=== PATIENT | female | born 1990 | race African-American/Black ===

== ENCOUNTER 2021-01-10 07:20 | Outpatient (REF) | payer OTHER, SELFPAY ==
[2021-01-10 11:33] LABS: MANUAL DIFF FLAG NO
[2021-01-10 11:49] LABS: Eosinophils Absolute Auto 0.3 X10*3/uL (0.0-0.4); Eosinophils Percent Auto 6.2 % (0-4); Hemoglobin 11.7 g/dl (12.0-16.0); Imm Gran Abs Auto 0.01 X10*3/uL (0.00-0.03); Imm Gran Pct Auto 0.2 % (0.0-0.4); Lymphocytes Absolute Auto 1.9 X10*3/uL (1.2-4.9); Lymphocytes Percent Auto 45.1 % (20-40); Mean Corpuscular HGB Conc 32.5 g/dl (31.0-35.0); Mean Corpuscular Hemoglobin 30.4 pg (27.0-33.0); Mean Corpuscular Volume 93.5 fL (80-98); Mean Platelet Volume 10.3 fL (9.4-12.3); Monocytes Absolute Auto 0.4 X10*3/uL (0.1-1.2); Monocytes Percent Auto 9.6 % (2-11); Neutrophils Absolute Auto 1.6 X10*3/uL (2.0-8.3); Neutrophils Percent Auto 37.9 % (45-73); Platelet Count 297 X10*3/uL (160-400); Red Blood Count 3.85 X10*6/uL (4.20-5.50); Red Cell Distribution Width 11.8 % (11.0-16.0); White Blood Count 4.2 X10*3/uL (4.8-10.8)
[2021-01-10 12:04] LABS: Cholesterol 163 mg/dL; Glucose Fasting 95 mg/dL (60-99); HDL Cholesterol 47 mg/dL; Iron 37 mcg/dL (30-160); LDL Cholesterol Calculated 108 mg/dl; Percent Iron Saturation 12 % (15-50); Total Iron Binding Capacity 297 mcg/dL (228-428); Triglycerides 40 mg/dL; Unsaturated Iron Binding 260 ug/dL
[2021-01-10 12:19] LABS: Ferritin 41 ng/mL (10-122)
== END 2021-01-10 07:21 | disposition home or self-care (01) ==
LOC: HO.HMGCLDS 07:20
PROVIDERS: PCP Internal Medicine; Visit Provider Internal Medicine
DX: Z00.01 Encounter for general adult medical examination with abnormal findings (principal); D50.9 Iron deficiency anemia, unspecified
CPT/HCPCS: 36415; 80061; 82728; 82947; 83540; 85025

== ENCOUNTER 2021-03-23 09:06 | Outpatient (REF) | payer OTHER, SELFPAY ==
--- NOTE | ~2021-03-23 | US_ITS ---
EXAMINATION: US PELVIS AND TRANSVAGINAL CLINICAL INFORMATION: Excessive and frequent menses. Fibroids. COMPARISON: None TECHNIQUE: Ultrasound of the pelvis is performed using both transabdominal and transvaginal transducers along with Doppler. Transvaginal imaging is performed due to inadequate visualization transabdominally. FINDINGS: UTERUS: The uterus is retroverted and measures 7.2 x 3.4 x 4.5 cm. The double wall endometrial thickness is 14 mm. The uterus is smooth in contour and has normal myometrial echogenicity. No visible fibroid. ADNEXA: Both ovaries are visualized. There is normal color flow to the adnexa. There is no ovarian torsion. [id number] pelvic free fluid. Right ovary measures 3.5 x 2 x 2.6 cm. Probable right ovarian corpus luteum measuring 1.7 cm. Left ovary measures 3.1 x 1.9 x 2.1 cm. No left ovarian lesion. US/US pelvic and transvaginal IMPRESSION: 1. Sonographically unremarkable uterus and endometrium. No myometrial fibroid. 2. Probable right ovarian corpus luteum measuring 1.7 cm. 3. Nmji-je-igdtnrvx pelvic free fluid.
== END 2021-03-23 09:07 | disposition home or self-care (01) ==
LOC: HO.HMGCX 09:06
PROVIDERS: PCP Internal Medicine; Visit Provider Internal Medicine
DX: N92.0 Excessive and frequent menstruation with regular cycle (principal); D50.9 Iron deficiency anemia, unspecified
CPT/HCPCS: 76830; 76856

== ENCOUNTER 2022-12-16 10:10 | Outpatient (REF) | payer OTHER, SELFPAY ==
[2022-12-16 11:15] LABS: MANUAL DIFF FLAG NO
[2022-12-16 11:41] LABS: Basophils Absolute Auto 0.1 X10*3/uL (0.0-0.2); Basophils Percent Auto 0.9 % (0-2); Eosinophils Absolute Auto 0.5 X10*3/uL (0.0-0.4); Hematocrit 38.2 % (37.0-47.0); Hemoglobin 12.8 g/dl (12.0-16.0); Imm Gran Abs Auto 0.02 X10*3/uL (0.00-0.03); Imm Gran Pct Auto 0.3 % (0.0-0.4); Lymphocytes Absolute Auto 1.6 X10*3/uL (1.2-4.9); Lymphocytes Percent Auto 24.4 % (20-40); Mean Corpuscular HGB Conc 33.5 g/dl (31.0-35.0); Mean Corpuscular Hemoglobin 31.1 pg (27.0-33.0); Mean Corpuscular Volume 92.7 fL (80.0-98.0); Mean Platelet Volume 9.8 fL (9.4-12.3); Monocytes Absolute Auto 0.5 X10*3/uL (0.1-1.2); Monocytes Percent Auto 7.2 % (2-11); Neutrophils Percent Auto 60.2 % (45-73); Platelet Count 302 X10*3/uL (160-400); Red Blood Count 4.12 X10*6/uL (4.20-5.50); Red Cell Distribution Width 12.1 % (11.0-16.0); White Blood Count 6.7 X10*3/uL (4.8-10.8)
[2022-12-16 12:05] LABS: HBS Num1 272.35 mIU/mL (0-7.99); ~Hepatitis B Surface Antibody REACTIVE (Nonreactive)
[2022-12-16 12:47] LABS: Alanine Aminotransferase 11 U/L (0-31); Aspartate Amino Transferase 19 U/L (5-31); Cholesterol 165 mg/dL; Glucose Fasting 79 mg/dL (60-99); HDL Cholesterol 50 mg/dL; Iron 114 mcg/dL (30-160); LDL Cholesterol Calculated 106 mg/dl; Percent Iron Saturation 39 % (15-50); Total Iron Binding Capacity 296 mcg/dL (228-428); Triglycerides 49 mg/dL; Unsaturated Iron Binding 182 ug/dL
[2022-12-18 02:24] LABS: Mumps Virus IgG Antibody <9.00 AU/mL; Rubella IgG Antibody 2.84 Index
== END 2022-12-16 10:11 | disposition home or self-care (01) ==
LOC: HO.HMGCLDS 10:10
PROVIDERS: PCP Internal Medicine; Visit Provider Internal Medicine
DX: D50.9 Iron deficiency anemia, unspecified (principal); Z01.84 Encounter for antibody response examination
CPT/HCPCS: 36415; 80061; 82947; 83540; 84450; 84460; 85025; 86706; 86735; 86762; 86765; 86787

== ENCOUNTER 2023-01-10 11:59 | Outpatient (REF) | payer SELFPAY ==
[2023-01-13 12:43] LABS: TS Negative Control Passed; TS Panel A 0; TS Panel B 0; TS Positive Control Passed; TSpotTB Negative (Negative)
== END 2023-01-10 12:00 | disposition home or self-care (01) ==
LOC: HO.HMGCLDS 11:59
PROVIDERS: PCP Internal Medicine; Visit Provider Internal Medicine
DX: Z11.1 Encounter for screening for respiratory tuberculosis (principal)
CPT/HCPCS: 36415; 86481

== ENCOUNTER 2023-03-21 09:46 | Outpatient (AMB) | payer BC, SELFPAY ==
--- NOTE | 2023-03-21 10:06 | AM.OFFVISNUR ---
Intake Intake Visit Reasons: MMR #2 Intake Note: Pt arrived for MMR booster Allergies No Known Allergies Allergy (Verified 12/13/22 12:00) Immunizations M-M-R II (PF) Performing Provider: Trena [place] MD Administered by: Lulú Lepe RN on 03/21/23 10:07 Dose Route Admin Location Lot Number Expiration Date NDC [employer] 0.5 mL subcut Right Arm [id number] 05/17/23 0551-8116-31 [employer] D VIS Given Date VIS Provided VIS Publication Date 03/21/23 Single Vaccine 21 Eligibility Eligibility Date Funding Source Not [facility] Eligible 03/21/23 Private Administration Comments: Sterile diluent Lot #[id number] Exp 06/16/2024 Coding Diagnoses Assessment & Plan Assessment & Plan Orders: Orders MMR Immunization Today Z23 - Encounter for immunization
== END 2023-03-21 10:50 | disposition home or self-care (01) ==
LOC: HO.HMGC 09:46
PROVIDERS: PCP Internal Medicine; Visit Provider Internal Medicine
DX: Z23 Encounter for immunization (principal)
CPT/HCPCS: 90471; 90707

== ENCOUNTER 2023-12-16 10:25 | Outpatient (AMB) | payer BC, SELFPAY ==
[2023-12-16 10:26] VITALS: BP 106/66; PULSE 61; O2SAT 98; BMI 24.6
--- NOTE | 2023-12-16 10:26 | A.OFFPC_ITS ---
Vital Signs 12/16/23 10:26 Height 5 ft 1 in Weight 130 lb BMI 24.6 BP 106/66 Blood Pressure Location Lt brachial Position Sitting Pulse 61 Pulse Source Pulse Oximeter Pulse Oximetry (%) 98 Oxygen Delivery Method Room Air Intake Visit Reasons: Annual PE Intake Note: pt is here for annual exam,patient states no concerns. last pap was done 2020 Magnetic Resonance Imaging Coordinator Required: No Accompanied by: Self / Same As Patient Allergies No Known Allergies Allergy (Verified 12/17/23 01:28) Medication List - Last Reconciled 12/16/23 by Trena [place] MD ferrous fumarate (Ferrocite) 324 mg PO DAILY loratadine (Claritin) 10 mg PO DAILY multivitamin 1 tab PO DAILY Tobacco use date assessed: 12/16/23 Dental Screening Dental Screen Date: 12/16/23 Did you have a dental visit in the last 12 months?: Yes Did you have a dental problem in the last 6 months where you did not have access to dental care?: No Was dental information given to patient?: Patient has dentist HPI Annual PE HPI Details 33-year-old lady with history of iron de ficiency anemia now resolved, still taking iron supplements due to heavy menstrual bleeding., presents today for her physical exam. She is up-to-date with her cervical cancer screening and pelvic exam, last done in 2020 at [facility]. She has seasonal and environmental allergies currently taking loratadine which has been helping. Has been feeling well with no complaints at present time. [facility] Medical History (Updated 12/17/23 @ 01:32 by Trena [place] MD) History of iron deficiency anemia Menorrhagia Surgical History (Updated 12/16/23 @ 10:29 by Dennis Luz CMA) No pertinent past surgical history Family History Father Mental health disorder Social History Housing: House Patient Tobacco Use Status: Never used Tobacco e-Cigarette/Vaping Use: Never Used service: No Current occupational status: employed Cognitive needs: No Hearing needs: No Vision needs: Yes Female Reproductive History Menstrual Duration of menses: 8-10 days Date of last menstrual period: 11/24/23 control method: none Questionnaire PHQ-9 Over the last 2 weeks, how often have you been bothered by any of the following problems? 1. Little interest or pleasure in doing things: not at all 2. Feeling down, depressed, or hopeless: not at all 3. Trouble falling or staying asleep, or sleeping too much: several days 4. Feeling tired or having little energy: several days 5. Poor appetite or overeating: not at all 6. Feeling bad about yourself - or that you are a failure or have let yourself or your family down: not at all 7. Trouble concentrating on things, such as reading the newspaper or watching television: not at all 8. Moving or speaking so slowly that other people could have noticed. Or the opposite - being so fidgety or restless that you have been moving around a lot more than usual: not at all 9. Thoughts that you would be better off or of hurting yourself in some way: not at all Total score: 2 Depression Screening Interpretation: Negative Depression Screening Done: Yes [id number] - PHQ-9 Billing: Yes Source: Developed by Drs. Vikas Almendarez, America Steiner, Tip Medeiros and colleagues, with an educational radha from [employer]. Thrive Questionnaire Date Thrive assessed: 12/16/23 I am a: Patient What is your living situation today?: I have a steady place to live Within the past 12 months, did the food you bought not last and you didn't have the money to get more?: Never true Within the past 12 months, did you worry whether your food would run out before you got money to buy more?: Never true Do you have trouble paying for medicines?: No Do you have trouble getting transportation to medical appointments?: No Do you have trouble paying your heating and electricity bill?: No Do you have trouble taking care of your child, family member or friend?: No Do you have trouble with day-to-day activities such as bathing, preparing meals, shopping, managing finances, etc.?: No Are you currently unemployed and looking for a job?: No Are you interested in more education?: No Please select the resources that you would like help with: None Currently or been in a relationship where the following occur: no concerns reported THRIVE Score: 0 AUDIT C Alcohol Use Questionnaire (AUDIT-C) 1. How often do you have a drink containing alcohol?: Never 3. How often do you have six or more drinks on one occasion?: Never Total Score: 0 JAMI-7 AMB Questionnaire JAMI-7 Date JAMI - 7 assessed: 12/16/23 Feeling nervous, anxious, or on edge: 1 = Several days Not being able to stop or control worryin = Not at all Worrying too much about different things: 1 = Several days Trouble relaxin = Several days Being so restless that it is hard to sit still: 0 = Not at all Becoming easily annoyed or irritable: 1 = Several days Feeling afraid as if something awful might happen: 0 = Not at all Total JAMI-7 score (0-4 normal; 5-9 mild; 10-14 moderate; 15-21 severe): 4 Source: Developed by Drs. Vikas Almendarez, America Steiner, Tip Medeiros and colleagues, with an educational radha from [employer]. JAMI-7 Assessment Billing JAMI-7 Assessment Tool: JAMI-7 Assessment 16120 Review of Systems Const Denies body aches, Denies fever(s), Denies headache(s) and Denies weakness Eyes Details: sees [facility] Denies itchy eyes and Reports requires corrective lenses ENT Details: gets dental cleaning q 6 months Denies dizziness, Denies headache(s), Denies nasal congestion and Denies nasal discharge Card Denies chest pain, Denies lightheadedness, Denies palpitations and Denies dyspnea Resp Denies chest congestion, Denies cough, Denies dyspnea and Denies wheezing GI Denies abdominal pain, Denies hematochezia, Denies change in bowel habits and Denies heartburn Reports menorrhagia Musc Reports no additional complaints Skin/Breast Denies lesions and Denies rash Neuro Denies dizziness, Denies headache(s) and Denies weakness Psych Reports no additional complaints Endo Denies polydipsia, Denies polyuria and Denies palpitations Diomedes/Lymph Denies easy bruising Aller/Immun Denies itchy eyes, Denies seasonal rhinorrhea and Denies wheezing Physical exam (Primary Care) Vital Signs: Last Vital Signs Pulse 61 12/16/23 10:26 BP 106/66 12/16/23 10:26 Pulse Ox 98 12/16/23 10:26 Oxygen Delivery Method Room Air 12/16/23 10:26 BMI result Body Mass Index 24.6 Tobacco/Smoking Status: Tobacco use Status Tobacco use date assessed 12/16/23 12/16/23 10:31 Patient Tobacco Use Status Never used Tobacco 12/16/23 10:31 e-Cigarette/Vaping Use Never Used 12/16/23 10:31 PHQ-9: PHQ-9 Score PHQ-9: Total score 2 12/16/23 10:50 Depression Screening Interpretation: Negative Thrive Assessment: Date of Thrive Assessment Date Thrive assessed 12/16/23 12/16/23 10:34 Currently or been in a relationship where the following occur: no concerns reported Const General: cooperative, comfortable and no acute distress Orientation/consciousness: patient oriented x3 Limitations: no limitations HENMT Ears: hearing grossly normal bilaterally, external ears normal, TM's normal bilaterally and EAC's normal General nose exam: Normal external nose present, Normal nasal mucous membranes and turbinates present and No nasal discharge present Mouth: Normal oral and palatal mucosa present, oropharynx normal and moist mucous membranes Throat: Yes posterior oropharynx normal Eyes General: appearance normal, both eyes and all related structures Conjunctivae: conjunctivae normal Pupils: Equal, round and reactive pupils present EOM: EOMs intact bilaterally Neck Neck: Yes full ROM, Yes no lymphadenopathy and Yes supple Chest Breast/axilla inspection: normal inspection of the breasts Breast/axilla palpation: normal palpation of the breasts Resp Effort & Inspection: normal respiratory effort and able to speak in complete sentences Auscultation: clear to auscultation bilaterally Cardio Rate: regular rate Rhythm: regular rhythm Heart sounds: S1 normal heart sound present and S2 normal heart sound present GI Inspection: Yes normal to inspection Palpation (GI): Soft to palpation, nontender and no masses Auscultation: normal bowel sounds General: Yes deferred (Up-to-date with her OBGYN exam) Back/Spine/Pelvis Cervical Spine: cervical ROM normal Thoracic/Lumbar Spine: thoracic and lumbar spine normal to inspection Skin General skin exam: no rashes or lesions noted Neuro General: patient oriented x3, gait normal, tone normal, moves all extremities, Normal light touch and pain sensation and no focal motor deficits Cranial nerves: Yes Equal, round and reactive pupils present Cognition (Neuro): normal cognition Gait exam (Neuro): Normal gait present Motor exam (neuro): 5/5 motor strength present throughout Extrem General: Yes normal to inspection, Yes full ROM, Yes no joint enlargement, Yes no pedal edema, Yes no calf tenderness and Yes normal gait Psych Appearance: grossly normal Mental Status: mental status grossly normal Speech and movement: Normal speech and movement present Affect: normal affect Attitude: cooperative Thought process: Normal thought process present Assessment and Plan Assessment & Plan (1) Annual visit for general adult medical examination with abnormal findings: Code(s): Z00. - Encounter for general adult medical examination with abnormal findings Plan: Will check appropriate labs. Continue with regular dental visit every 6 months and regular eye exams, at least every 2 years. Take adequate calcium in diet and vitamin-D 3 at 2000 IU per cap once a day, in addition to weight-bearing exercises to help maintain good muscle tone and weight control. Instructed to do self-breast exam, and recommended to get yearly mammogram, starting at age 40. Goes to [facility] for her routine Pap and pelvic exam, currently up-to-date. Up-to-date with her vaccines (2) History of iron deficiency anemia: Code(s): Z86.2 - Personal history of diseases of the blood and blood-forming organs and certain disorders involving the immune mechanism Plan: Repeat another CBC and iron profile, in the meantime continue with ferrous sulfate supplements (3) Menorrhagia: Comment: last 8-10 days Code(s): N92.0 - Excessive and frequent menstruation with regular cycle Qualifiers: Menorrhagia type: with regular cycle Qualified Code(s): N92.0 - Excessive and frequent menstruation with regular cycle Plan: Will check CBC and iron profile, currently being [facility] Orders: Orders Complete Blood Count Auto Diff 12/16/23 Z. - Encounter for general adult medical examination with abnormal findings IRON PROFILE 12/16/23 Z. - Encounter for general adult medical examination with abnormal findings Lipid Panel 12/16/23 Z. - Encounter for general adult medical examination with abnormal findings Vitamin D 25-OH Total 12/16/23 Z. - Encounter for general adult medical examination with abnormal findings Glucose Fasting 12/16/23 Z. - Encounter for general adult medical examination with abnormal findings Coding Level of Care Code Est Pt Prev Care [id number]([id number]) Diagnoses Annual visit for general adult medical examination with abnormal findings Z00.01 History of iron deficiency anemia Z86.2 Menorrhagia with regular cycle N92.0 Menorrhagia type: with regular cycle Additional Codes JAMI-7 Assessment Billing - JAMI-7 Assessment Tool: JAMI-7 Assessment 26897 ([id number])
== END 2023-12-16 10:48 | disposition home or self-care (01) ==
LOC: HO.HMGC 10:25
PROVIDERS: PCP Internal Medicine; Visit Provider Internal Medicine
DX: Z00.00 Encounter for general adult medical examination without abnormal findings (principal); Z86.2 Personal history of diseases of the blood and blood-forming organs and certain disorders involving the immune mechanism; N92.0 Excessive and frequent menstruation with regular cycle
CPT/HCPCS: 99395

== ENCOUNTER 2024-12-21 09:04 | Outpatient (REF) | payer BC, SELFPAY ==
--- OUTSIDE RECORDS SUMMARY | 2024-12-21 09:31 | XMS_ITS | Encounter Summary ---
Author Organization [facility] Address [address] [place] [phone] Phone Care Team Providers Care Gear Machinist Name Role Phone Patricia Yip MD Primary Care Provider Encounter Details Date Type Department Care Team (Late st Contact Info) Description 10/19/2012 [place]ation [facility] [place] [address] [place] [address] Family Medicine, Physician [address] [place], [place] [phone] Social History Tobacco Use Types Packs/Day Years Used Date Smoking Tobacco: Never Assessed Comments Unknown Sex and Gender Information Value Date Recorded Sex Assigned at Not on file Legal Sex Female 4:45 PM EDT Gender Identity Not on file Sexual Orientation Not on file documented as of this encounter Plan of Treatment Not on file documented as of this encounter Visit Diagnoses Not on filedocumented in this encounter Care Teams Gear Machinist Relationship Specialty Start Date End Date Patricia Yip MD [address] [place] [address] PCP - General 03/21/17 03/11/23 documented as of this encounter
--- OUTSIDE RECORDS SUMMARY | 2024-12-21 09:31 | XMS_ITS | Encounter Summary ---
Author Organization [facility] Address [address] [place] [address] Phone Care Team Providers Care Embossing Calender Operator Name Role Phone Patricia Yip MD Primary Care Provider Encounter Details Date Type Department Care Team (Late st Contact Info) Description 04/01/2011 Documentation [facility] [place] [address] [place] [address] Family Medicine, Physician [address] [place], [place] [phone] Social History Tobacco Use Types Packs/Day Years [...] on filedocumented in this encounter Care Teams Embossing Calender Operator Relationship Specialty Start Date End Date Patricia Yip MD [address] [place] [address] PCP - General 03/21/17 03/11/23 documented as of this encounter
--- OUTSIDE RECORDS SUMMARY | 2024-12-21 09:31 | XMS_ITS | Encounter Summary ---
Author Organization [facility] Address [address] [place] [phone] Phone Care Team Providers Care Computer Education Teacher Name Role Phone Patricia Yip MD Primary Care Provider Encounter Details Date Type Department Care Team (Late st Contact Info) Description 03/27/2017 Conversion Encounter [facility] [address] [place] [address] Social History Tobacco Use Types Packs/Day Years Used Date Smoking Tobacco: Never Comments:Never smoker Comments Unknown Sex and Gender Information Value Date Recorded Sex Assigned at Not on file Legal Sex Female 4:45 PM EDT Gender Identity Not on file Sexual Orientation Not on file documented as of this encounter Plan of Treatment Not on file documented as of this encounter Visit Diagnoses Not on filedocumented in this encounter Care Teams Computer Education Teacher Relationship Specialty Start Date End Date Patricia Yip MD [address] [place] [address] PCP - General 03/21/17 03/11/23 documented as of this encounter
--- OUTSIDE RECORDS SUMMARY | 2024-12-21 09:31 | XMS_ITS | Encounter Summary ---
Author Organization [facility] Address [address] [place] [address] Phone Care Team Providers Care Marketing Production Coordinator Name Role Phone Patricia Yip MD Primary Care Provider [phone] Encounter Details Date Type Department Care Team (Late st Contact Info) Description 07/29/2012 Documentation [facility] [place] [address] [place] [address] Family Medicine, Physician [address] [place], [place] [phone] Social History Tobacco Use Types Packs/Day Years [...] on filedocumented in this encounter Care Teams Marketing Production Coordinator Relationship Specialty Start Date End Date Patricia Yip MD [address] [place] [address] PCP - General 03/21/17 03/11/23 documented as of this encounter
--- OUTSIDE RECORDS SUMMARY | 2024-12-21 09:31 | XMS_ITS | Encounter Summary ---
Author Organization [facility] Address [address] [place] [phone] Phone Care Team Providers Care Jewel Inserter Name Role Phone Patricia Yip MD Primary Care Provider [phone] Encounter Details Date Type Department Care Team (Late st Contact Info) Description 07/29/2012 Documentation [facility] [place] [address] [place] [address] Family Medicine, Physician [address] [place], [place] [phone] Social History Tobacco Use Types Packs/Day Years [...] on filedocumented in this encounter Care Teams Jewel Inserter Relationship Specialty Start Date End Date Patricia Yip MD [address] [place] [address] PCP - General 03/21/17 03/11/23 documented as of this encounter
--- OUTSIDE RECORDS SUMMARY | 2024-12-21 09:31 | XMS_ITS | Encounter Summary ---
Author Organization [facility] Address [address] [place] [phone] Phone Care Team Providers Care Paediatric Physiotherapist Name Role Phone Patricia Yip MD Primary Care Provider Encounter Details Date Type Department Care Team (Late st Contact Info) Description 11/26/2012 Documentation [facility] [place] [address] [place] [address] Family Medicine, Physician [address] [place], [place] [phone] Social History Tobacco Use Types Packs/Day Years [...] on filedocumented in this encounter Care Teams Paediatric Physiotherapist Relationship Specialty Start Date End Date Patricia Yip MD [address] [place] [address] PCP - General 03/21/17 03/11/23 documented as of this encounter
--- OUTSIDE RECORDS SUMMARY | 2024-12-21 09:31 | XMS_ITS | Encounter Summary ---
Author Organization [facility] Address [address] [place] [address] Phone Care Team Providers Care Library Manager Name Role Phone Patricia Yip MD Primary Care Provider Encounter Details Date Type Department Care Team (Late st Contact Info) Description 04/01/2011 Documentation [facility] [place] Family Medicine [address] [place] [address] Family Medicine, Physician [address] [place], [place] [phone] Social History Tobacco Use Types Packs/Day Years [...] on filedocumented in this encounter Care Teams Library Manager Relationship Specialty Start Date End Date Patricia Yip MD [address] [place] [address] PCP - General 03/21/17 03/11/23 documented as of this encounter
--- OUTSIDE RECORDS SUMMARY | 2024-12-21 09:31 | XMS_ITS | Encounter Summary ---
Author Organization [facility] Address [address] [place] [address] Phone Care Team Providers Care Tape Librarian Name Role Phone Patricia Yip MD Primary Care Provider Encounter Details Date Type Department Care Team (Late st Contact Info) Description 10/19/2012 Documentation [facility] [place] [address] [place] [address] Family Medicine, Physician [address] [place], [place] [phone] Social History Tobacco Use Types Packs/Day Years [...] on filedocumented in this encounter Care Teams Tape Librarian Relationship Specialty Start Date End Date Patricia Yip MD [address] [place] [address] PCP - General 03/21/17 03/11/23 documented as of this encounter
--- OUTSIDE RECORDS SUMMARY | 2024-12-21 09:31 | XMS_ITS | Clinical Summary ---
Author Organization [facility] Address [address] [place] [phone] Phone Care Team Providers Care Piped Buttonhole Machine Operator Name Role Phone Unavailable Primary Care Provider Unavailabl e Immunizations Immunization Administration Dates Next Due DTP 02/07/1998, 5,06/10/1993, 993,1992 HPV, Quadrivalent 03/29/2011,02/20/2010,11/09/19 09 Hep A, ped/adol 03/29/2011 Hep B, ped/adol 04/01/2011, 3,1992, 993 Hib (PRP-T) 06/04/1994, 3,04/10/1993, 993 Influenza Split 03/29/2011 Influenza, injectable, trivalent 07/17/2007 MMR 02/07/1998,06/04/1994 Meningococcal Conj (Menactra) MCV4P 11/08/2008 OPV 02/07/1998, 5,06/04/1994, 993,1992 Tdap 05/27/2006 Family History Relation Name Status Comments Mother Alive Mother: Asthma Other 1 Alive grandparent: El evated cholesterol Other 2 Family history of Cancer, lung, Family history of Depression, Family history of Asthma Sister Alive Sister: Asthma Social History Tobacco Use Types Packs/Day Years Used Date Smoking Tobacco: Never Comments:Never smoker Comments Unknown Sex and Gender Information Value Date Recorded Sex Assigned at Not on file Legal Sex Female 4:45 PM EDT Gender Identity Not on file Sexual Orientation Not on file Last Filed Vital Signs Vital Sign Reading Time Taken Comments Blood Pressure 106/68 11/25/2012 12:00 AM EDT Pulse - - Temperature 36.8 ??C (98.3 ??F) 10/18/2012 12:[address] Respiratory Rate - - Oxygen Saturation - - Inhaled Oxygen Concentration - - Weight 51.5 kg (113 lb 8 oz) 11/25/2012 12:00 AM EDT Height 157 cm (5' 1.8 ) 11/25/2012 12:00 AM EDT Body Mass Index 20.89 11/25/2012 12:00 AM EDT Plan of Treatment Health Maintenance Due Date Last Done Comments Varicella Vaccines (1 of 2 - 13+ 2-dose series) 2005 Hepatitis A Vaccines (2 of 2 - 2-dose series) 09/29/2011 03/29/2011 DTaP,Tdap,and Td Vaccines (7 - Td or Tdap) 05/27/2016 05/27/2006, 02/07/1998, 12/08/1994, Additional history exists Influenza Vaccines (#1) 2024 03/29/2011, 07/17 COVID-19 Vaccine ( season) 2024 HIB Vaccines Completed 06/04/1994, 05/13, 04/10/1993, Additional history exists IPV Vaccines Completed 02/07/1998, 04/08/1994, 06/04/1994, Additional history exists MMR Vaccines Completed 02/07/1998, 06/04/1994 Meningococcal Vaccine Completed 11/08/2008 HPV Vaccines Completed 03/29/2011, 02/08, 11/08/2008 Hepatitis B Vaccines Completed 04/01/2011, 04/12/1993, 1992, Additional history exists Men B Vaccine Aged Out No longer elig ible based on patient's age to complete this topic Pneumococcal Vaccine Aged Out No long er eligible based on patient's age to complete this topic
--- OUTSIDE RECORDS SUMMARY | 2024-12-21 09:31 | XMS_ITS | Encounter Summary ---
Author Organization [facility] Address [address] [place] [address] Phone Care Team Providers Care Table And Desk Finisher Name Role Phone Patricia Yip MD Primary Care Provider Encounter Details Date Type Department Care Team (Late st Contact Info) Description 04/01/2011 Documentation [facility] [place] Family Medicine [address] [place] [address] Family Medicine, Physician [address] [place], [place] [phone] Social History Tobacco Use Types Packs/Day Years [...] on filedocumented in this encounter Care Teams Table And Desk Finisher Relationship Specialty Start Date End Date Patricia Yip MD [address] [place] [address] PCP - General 03/21/17 03/11/23 documented as of this encounter
--- OUTSIDE RECORDS SUMMARY | 2024-12-21 09:31 | XMS_ITS | Encounter Summary ---
Author Organization [facility] Address [address] [place] [address] Phone Care Team Providers Care Fire Control System Installer Name Role Phone Patricia Yip MD Primary Care Provider [phone] Encounter Details Date Type Department Care Team (Late st Contact Info) Description 07/24/2012 Documentation [facility] [place] Family Medicine [address] [place] [address] Family Medicine, Physician [address] [place], [place] [phone] Social History Tobacco Use Types Packs/Day Years [...] on filedocumented in this encounter Care Teams Fire Control System Installer Relationship Specialty Start Date End Date Patricia Yip MD [address] [place] [address] PCP - General 03/21/17 03/11/23 documented as of this encounter
--- OUTSIDE RECORDS SUMMARY | 2024-12-21 09:31 | XMS_ITS | Encounter Summary ---
Author Organization [facility] Address [address] [place] [address] Phone Care Team Providers Care Satellite Tv Technician Name Role Phone Patricia Yip MD Primary Care Provider Encounter Details Date Type Department Care Team (Late st Contact Info) Description 08/07/2012 Documentation [facility] Family Medicine [address] [place] [address] Family Medicine, Physician [address] [place], [place] [phone] Social History Tobacco Use Types Packs/Day Years [...] on filedocumented in this encounter Care Teams Satellite Tv Technician Relationship Specialty Start Date End Date Patricia Yip MD [address] [place] [address] PCP - General 03/21/17 03/11/23 documented as of this encounter
--- OUTSIDE RECORDS SUMMARY | 2024-12-21 09:31 | XMS_ITS | Encounter Summary ---
Author Organization [facility] Address [address] [place] [address] Phone Care Team Providers Care Pump Runner Name Role Phone Patricia Yip MD Primary Care Provider Encounter Details Date Type Department Care Team (Late st Contact Info) Description 04/01/2011 Documentation [facility] [place] Family Medicine [address] [place] [address] Family Medicine, Physician [address] [place], [place] [phone] Social History Tobacco Use Types Packs/Day Years [...] on filedocumented in this encounter Care Teams Pump Runner Relationship Specialty Start Date End Date Patricia Yip MD [address] [place] [address] PCP - General 03/21/17 03/11/23 documented as of this encounter
--- OUTSIDE RECORDS SUMMARY | 2024-12-21 09:31 | XMS_ITS | Encounter Summary ---
Author Organization [facility] Address [address] [place] [address] Phone Care Team Providers Care Tail Puller Name Role Phone Patricia Yip MD Primary Care Provider Encounter Details Date Type Department Care Team (Late st Contact Info) Description 07/24/2012 Documentation [facility] [place] Family Medicine [address] [place] [address] Family Medicine, Physician [address] [place], [place] [phone] Social History Tobacco Use Types Packs/Day Years [...] on filedocumented in this encounter Care Teams Tail Puller Relationship Specialty Start Date End Date Patricia Yip MD [address] [place] [address] PCP - General 03/21/17 03/11/23 documented as of this encounter
[2024-12-21 10:14] LABS: MANUAL DIFF FLAG NO
[2024-12-21 10:27] LABS: Basophils Absolute Auto 0.1 X10*3/uL (0.0-0.2); Basophils Percent Auto 1.1 % (0-2); Eosinophils Absolute Auto 0.6 X10*3/uL (0.0-0.4); Eosinophils Percent Auto 8.9 % (0-4); Hemoglobin 11.7 g/dl (12.0-16.0); Imm Gran Abs Auto 0.02 X10*3/uL (0.00-0.03); Imm Gran Pct Auto 0.3 % (0.0-0.4); Lymphocytes Absolute Auto 1.9 X10*3/uL (1.2-4.9); Mean Corpuscular HGB Conc 33.4 g/dl (31.0-35.0); Mean Corpuscular Hemoglobin 30.5 pg (27.0-33.0); Mean Corpuscular Volume 91.1 fL (80.0-98.0); Mean Platelet Volume 9.8 fL (9.4-12.3); Monocytes Absolute Auto 0.6 X10*3/uL (0.1-1.2); Monocytes Percent Auto 9.1 % (2-11); Neutrophils Absolute Auto 3.2 x10*3/uL (2.0-8.3); Neutrophils Percent Auto 50.6 % (45-73); Platelet Count 318 X10*3/uL (160-400); Red Blood Count 3.84 X10*6/uL (4.20-5.50); Red Cell Distribution Width 11.4 % (11.0-16.0); White Blood Count 6.3 X10*3/uL (4.8-10.8)
[2024-12-21 11:20] LABS: Alanine Aminotransferase 16 U/L (0-31); Anion Gap 13 (12-20); Aspartate Amino Transferase 28 U/L (5-31); Blood Urea Nitrogen 11 mg/dL (9-16); Calcium 9.2 mg/dL (8.4-10.2); Carbon Dioxide 26 mmol/L (22-29); Chloride 105 mmol/L (96-108); Cholesterol 156 mg/dL (<200); Estimated Glomerular Filt Rate > 60; Glucose Fasting 85 mg/dL (60-99); HDL Cholesterol 50 mg/dL (>40); Iron 39 mcg/dL (30-160); LDL Cholesterol Calculated 97 mg/dL (<100); Percent Iron Saturation 15 % (15-50); Potassium 3.5 mmol/L (3.3-5.1); Sodium 140 mmol/L (135-145); TSH reflex Free T4 1.12 uIU/mL (0.32-4.0); Total Iron Binding Capacity 259 mcg/dL (228-428); Triglycerides 48 mg/dL (<150); Unsaturated Iron Binding 220 ug/dL
== END 2024-12-21 09:05 | disposition home or self-care (01) ==
LOC: HO.HMGCLDS 09:04
PROVIDERS: PCP Internal Medicine; Visit Provider Internal Medicine
DX: N92.0 Excessive and frequent menstruation with regular cycle (principal); Z86.2 Personal history of diseases of the blood and blood-forming organs and certain disorders involving the immune mechanism; Z13.220 Encounter for screening for lipoid disorders; Z13.1 Encounter for screening for diabetes mellitus; Z13.6 Encounter for screening for cardiovascular disorders
CPT/HCPCS: 36415; 80048; 80061; 83540; 84443; 84450; 84460; 85025

== ENCOUNTER 2024-12-22 12:28 | Outpatient (AMB) | payer BC, SELFPAY ==
--- NOTE | 2024-12-22 12:32 | A.OFFPC_ITS ---
Vital Signs 12/22/24 12:36 Height 5 ft 1 in Weight 125 lb BMI 23.6 BP 104/70 Blood Pressure Location Lt brachial Position Sitting Respiration 16 Pulse 53 Pulse Source Pulse Oximeter Temp 97.3 F Temp Source Oral Pulse Oximetry (%) 97 Oxygen Delivery Method Room Air Intake Visit Reasons: Annual PE Intake Note: Pt is here today for her PE: last papsmear 01/12/21 Is last menstrual period known: Yes Last menstrual period: 12/09/24 Allergies No Known Allergies Allergy (Verified 12/22/24 13:06) Medication List - Last Reconciled 12/22/24 by Trena Montgomery MD ferrous fumarate (Ferrocite) 324 mg PO DAILY loratadine (Claritin) 10 mg PO DAILY multivitamin 1 tab PO DAILY Tobacco use date assessed: 12/22/24 Dental Screening Dental Screen Date: 12/22/24 Did you have a dental visit in the last 12 months?: Yes Did you have a dental problem in the last 6 months where you did not have access to dental care?: Yes Was dental information given to patient?: Patient has dentist HPI Annual PE HPI Details 34-year-old lady with history of iron-de ficiency anemia, due to heavy menstrual bleeding, here today for physical exam. She sees [facility] for her routine Pap and pelvic exam with last Pap smear done in 2020 showing benign findings. Has seasonal and environmental allergies, takes loratadine 10 mg once a day as needed. [facility] Medical History History of iron deficiency anemia Menorrhagia Surgical History No pertinent past surgical history Family History Father Mental health disorder Social History Housing: House Patient Tobacco Use Status: Never used Tobacco e-Cigarette/Vaping Use: Never Used service: No Current occupational status: employed Cognitive needs: No Hearing needs: No Vision needs: Yes Female Reproductive History Menstrual Date of last menstrual period: 12/09/24 Questionnaire PHQ-9 Over the last 2 weeks, how often have you been bothered by any of the following problems? 1. Little interest or pleasure in doing things: several days 2. Feeling down, depressed, or hopeless: not at all 3. Trouble falling or staying asleep, or sleeping too much: several days 4. Feeling tired or having little energy: more than half the days 5. Poor appetite or overeating: several days 6. Feeling bad about yourself - or that you are a failure or have let yourself or your family down: not at all 7. Trouble concentrating on things, such as reading the newspaper or watching television: several days 8. Moving or speaking so slowly that other people could have noticed. Or the opposite - being so fidgety or restless that you have been moving around a lot more than usual: not at all 9. Thoughts that you would be better off or of hurting yourself in some way: not at all Total score: 6 Depression Screening Interpretation: Negative Depression Screening Done: Yes 21598 - PHQ-9 Billing: Yes Source: Developed by Drs. Vikas Almendarez, America Steiner, Tip Medeiros and colleagues, with an educational radha from [employer]. Thrive Questionnaire Date Thrive assessed: 12/22/24 I am a: Patient What is your living situation today?: I have a steady place to live Within the past 12 months, did the food you bought not last and you didn't have the money to get more?: Never true Within the past 12 months, did you worry whether your food would run out before you got money to buy more?: Never true Do you have trouble paying for medicines?: No Do you have trouble getting transportation to medical appointments?: No Do you have trouble paying your heating and electricity bill?: No Do you have trouble taking care of your child, family member or friend?: No Do you have trouble with day-to-day activities such as bathing, preparing meals, shopping, managing finances, etc.?: No Are you currently unemployed and looking for a job?: No Are you interested in more education?: No Please select the resources that you would like help with: None Currently or been in a relationship where the following occur: No concerns reported THRIVE Score: 0 AUDIT C Alcohol Use Questionnaire (AUDIT-C) 1. How often do you have a drink containing alcohol?: Never 3. How often do you have six or more drinks on one occasion?: Never Total Score: 0 JAMI-7 AMB Questionnaire JAMI-7 Date JAMI - 7 assessed: 12/22/24 Feeling nervous, anxious, or on edge: 1 = Several days Not being able to stop or control worryin = Several days Worrying too much about different things: 1 = Several days Trouble relaxin = Several days Being so restless that it is hard to sit still: 1 = Several days Becoming easily annoyed or irritable: 1 = Several days Feeling afraid as if something awful might happen: 1 = Several days Total JAMI-7 score (0-4 normal; 5-9 mild; 10-14 moderate; 15-21 severe): 7 Source: Developed by Drs. Vikas Almendarez, America Steiner, Tip Medeiros and colleagues, with an educational radha from [employer]. JAMI-7 Assessment Billing JAMI-7 Assessment Tool: JAMI-7 Assessment 44530 Review of Systems Const Denies body aches, Denies fever(s), Denies headache(s) and Denies weakness Eyes Details: sees [facility] requires corrective lenses ENT Details: gets dental cleaning q 6 months Denies dizziness, Denies headache(s), Denies nasal congestion and Denies nasal discharge Card Denies chest pain, Denies lightheadedness, Denies palpitations and Denies dyspnea Resp Denies chest congestion, Denies cough, Denies dyspnea and Denies wheezing GI Denies abdominal pain, Denies hematochezia, Denies change in bowel habits and Denies heartburn Reports menorrhagia Musc Reports no additional complaints Skin/Breast Denies lesions and Denies rash Neuro Denies dizziness, Denies headache(s) and Denies weakness Psych Reports no additional complaints Endo Denies polydipsia, Denies polyuria and Denies palpitations Diomedes/Lymph Denies easy bruising Aller/Immun Denies seasonal rhinorrhea and Denies wheezing Physical exam (Primary Care) Vital Signs: Last Vital Signs Temp 97.3 F 12/22/24 12:36 Pulse 53 12/22/24 12:36 Resp 16 12/22/24 12:36 BP 104/70 12/22/24 12:36 Pulse Ox 97 12/22/24 12:36 Oxygen Delivery Method Room Air 12/22/24 12:36 BMI result Body Mass Index 23.6 Tobacco/Smoking Status: Tobacco use Status Tobacco use date assessed 12/22/24 12/22/24 12:33 Patient Tobacco Use Status Never used Tobacco 12/22/24 12:33 e-Cigarette/Vaping Use Never Used 12/22/24 12:33 PHQ-9: PHQ-9 Score PHQ-9: Total score 7 12/22/24 13:28 Depression Screening Interpretation: Negative Thrive Assessment: Date of Thrive Assessment Date Thrive assessed 12/22/24 12/22/24 12:33 Currently or been in a relationship where the following occur: No concerns reported Const General: cooperative, comfortable and no acute distress Orientation/consciousness: patient oriented x3 Limitations: no limitations HENMT Ears: hearing grossly normal bilaterally, external ears normal and Abnormal EAC present excessive cerumen General nose exam: Normal external nose present, Normal nasal mucous membranes and turbinates present and No nasal discharge present Mouth: Normal oral and palatal mucosa present, oropharynx normal and moist mucous membranes Throat: Yes posterior oropharynx normal Eyes General: appearance normal, both eyes and all related structures Conjunctivae: conjunctivae normal Pupils: Equal, round and reactive pupils present EOM: EOMs intact bilaterally Neck Neck: Yes full ROM, Yes no lymphadenopathy and Yes supple Chest Breast/axilla inspection: normal inspection of the breasts Breast/axilla palpation: normal palpation of the breasts Resp Effort & Inspection: normal respiratory effort and able to speak in complete sentences Auscultation: clear to auscultation bilaterally Cardio Rate: regular rate Rhythm: regular rhythm Heart sounds: S1 normal heart sound present and S2 normal heart sound present GI Inspection: Yes normal to inspection Palpation (GI): Soft to palpation, nontender and no masses Auscultation: normal bowel sounds General: Yes deferred (Up-to-date with her OBGYN exam) Back/Spine/Pelvis Cervical Spine: cervical ROM normal Thoracic/Lumbar Spine: thoracic and lumbar spine normal to inspection Skin General skin exam: no rashes or lesions noted Neuro General: patient oriented x3, gait normal, tone normal, moves all extremities, Normal light touch and pain sensation and no focal motor deficits Cranial nerves: Yes Equal, round and reactive pupils present Cognition (Neuro): normal cognition Gait exam (Neuro): Normal gait present Motor exam (neuro): 5/5 motor strength present throughout Extrem General: Yes normal to inspection, Yes full ROM, Yes no joint enlargement, Yes no pedal edema, Yes no calf tenderness and Yes normal gait Psych Appearance: grossly normal Mental Status: mental status grossly normal Speech and movement: Normal speech and movement present Affect: normal affect Attitude: cooperative Thought process: Normal thought process present Office Procedures Cerumen Removal From which ear canal was the cerumen removed: right Removal: other (Lighted ear curette) Notes: patient tolerated procedure well, no complications and ear canal clear [id number] Wax Removal by Spoon/Curette Results Reviewed Results Reviewed: Name: Dannielle Hui Age/Sex: 34/F : 1990 Unit#: [id number] Attend Dr: Trena Montgomery MD Re12/21/24 Status: DEP REF Location: [facility] Disch: SPEC : [id number] LINDSAY: 12/21/24 STATUS: COMP REQ : [id number] RECD: 12/21/24-[address]: Trena Montgomery MD COMP: 12/21/24 ENTERED: 12/21/[address]: ORDERED: CBC Auto Diff Test Result Flag Reference WBC 6.3 4.8-10.8 X10*3/uL RBC 3.84 L 4.20-5.50 X10*6/uL HGB 11.7 L 12.0-16.0 g/dl HCT 35.0 L 37.0-47.0 % MCV 91.1 80.0-98.0 fL MCH 30.5 27.0-33.0 pg MCHC 33.4 31.0-35.0 g/dl RDW 11.4 11.0-16.0 % PLT 318 160-400 X10*3/uL MPV 9.8 9.4-12.3 fL Neut Pct Auto 50.6 45-73 % ImGran Pct Auto 0.3 0.0-0.4 % Lymp Pct Auto 30.0 20-40 % Taylor Pct Auto 9.1 2-11 % Eos Pct Auto 8.9 H 0-4 % Baso Pct Auto 1.1 0-2 % NRBC Pct Auto 0.0 0.0-0.2 /100WBC ANC Neut Abs # 3.2 2.0-8.3 x10*3/uL ImGran Abs Auto 0.02 0.00-0.03 X10*3/uL Lymph Abs Auto 1.9 1.2-4.9 X10*3/uL Taylor Abs Auto 0.6 0.1-1.2 X10*3/uL Eos Abs Auto 0.6 H 0.0-0.4 X10*3/uL Baso Abs Auto 0.1 0.0-0.2 X10*3/uL NRBC Abs Auto 0.000 0.0-0.012 X10*3/uL Name: Dannielle Hui Age/Sex: 34/F : 1990 Unit#: [id number] Attend Dr: Trena Montgomery MD Re12/21/24 Status: DEP REF Location: [facility] Disch: SPEC : [id number] LINDSAY: 12/21/24 STATUS: COMP REQ : [id number] RECD: 12/21/24-[address]: Trena Montgomery MD COMP: 12/21/24 ENTERED: 12/21/24-[address] [facility] [address]: ORDERED: Met Prof Fast, IRON PROF, AST, ALT, Lipid Panel, TSH Rflx Test Result Flag Reference Sodium 140 135-145 mmol/L Potassium 3.5 3.3-5.1 mmol/L CL 105 96-108 mmol/L CO2 26 22-29 mmol/L Gap 13 12-20 BUN 11 9-16 mg/dL Creat 0.75 0.5-1.4 mg/dL eGFR > 60 Chronic Kidney Disease: Estimated GFR < 60 mL/min/1.73m2 Severe Kidney Disease: Estimated GFR < 15 mL/min/1.73m2 FBS 85 60-99 mg/dL CA 9.2 8.4-10.2 mg/dL Iron 39 30-160 mcg/dL TIBC 259 228-428 mcg/dL Saturation 15 15-50 % UIBC 220 ug/dL AST (GOT) 28 5-31 U/L ALT (GPT) 16 0-31 U/L Triglyceride 48 <150 mg/dL Desirable Triglyceride: less than 150 mg/dL Borderline High Triglyceride 150-199 mg/dL High Triglyceride: 200-499 mg/dL Very High Triglyceride: greater than or equal to 5OO mg/dL Cholesterol 156 <200 mg/dL Desirable Cholesterol: less than 200 mg/dL Borderline High Cholesterol: 200-239 mg/dL High Cholesterol: greater than 239 mg/dL LDL Calculated 97 <100 mg/dL Desirable LDL: less than 100 mg/dL Near Optimal/Above Optimal LDL: 110-129 mg/dL Borderline High LDL: 130-159 mg/dL High LDL: 160-189 mg/dL Very High LDL: greater than or equal to 190 mg/dL HDL 50 >40 mg/dL Desirable HDL: greater than 40 mg/dL Note: This HDL assay may give artificially low results in patients with liver disease. TSH 1.12 0.32-4.0 uIU/mL Coding Level of Care Code Est Pt Prev Care 18-39y(90136) Diagnoses Annual visit for general adult medical examination with abnormal findings Z00. Screening for malignant neoplasm of cervix Z12.4 Menorrhagia with regular cycle N92.0 Menorrhagia type: with regular cycle Iron deficiency anemia D50.9 Impacted cerumen of right ear H61.21 CPT Codes Office Procedure - CPT: 06383-Qtq Wax Removal by Spoon/Curette ([id number]) Additional Codes PHQ-9 - 58499 - PHQ-9 Billing: Yes ([id number]) JAMI-7 Assessment Billing - JAMI-7 Assessment Tool: JAMI-7 Assessment 09908 ([id number]) Assessment & Plan Assessment & Plan (1) Annual visit for general adult medical examination with abnormal findings: Code(s): Z00. - Encounter for general adult medical examination with abnormal findings Plan: Will check appropriate labs. Continued regular dental visit every 6 months and regular eye exams, at least every 2 years. Take adequate calcium in diet and vitamin-D 3 at 2000 IU per cap once a day, in addition to weight-bearing e xercises to help maintain good muscle tone and weight control. Instructed to do self-breast exam, and recommended to get yearly mammogram, starting at age 40. She has had COVID vaccines in the past but did not get the booster, gets her yearly flu vaccine, and is due now for a tetanus diphtheria booster , advised to get it from the pharmacy (2) Screening for malignant neoplasm of cervix: Code(s): Z12.4 - Encounter for screening for malignant neoplasm of cervix Plan: Referral to [facility] for her routine Pap and pelvic exam. (3) Menorrhagia: Comment: last 8-10 days Code(s): N92.0 - Excessive and frequent menstruation with regular cycle Category: Medical Qualifiers: Menorrhagia type: with regular cycle Qualified Code(s): N92.0 - Excessive and frequent menstruation with regular cycle Plan: Referred to [facility] for further evaluation and management (4) Iron deficiency anemia: Code(s): D50.9 - Iron deficiency anemia, unspecified Category: Medical Plan: Will check CBC with differential and ferritin levels as well as iron profile. Continue taking ferrous fumarate 324 mg daily, incorporate a lot of green leafy vegetables , whole grain, lean meat and (5) Impacted cerumen of right ear: Code(s): H61.21 - Impacted cerumen, right ear Plan: Successful removal of cerumen in right ear canal using lighted ear curette. Patient tolerated procedure well Orders: Orders Complete Blood Count Auto Diff 6 Months N92.0 - Excessive and frequent menstruation with regular cycle, D50.9 - Iron deficiency anemia, unspecified Ferritin 6 Months N92.0 - Excessive and frequent menstruation with regular cycle, D50.9 - Iron deficiency anemia, unspecified IRON PROFILE 6 Months N92.0 - Excessive and frequent menstruation with regular cycle, D50.9 - Iron deficiency anemia, unspecified Referrals [employer] Referral Z12.4 - Encounter for screening for malignant neoplasm of cervix, N92.0 - Excessive and frequent menstruation with regular cycle
[2024-12-22 12:36] VITALS: BP 104/70; PULSE 53; RESP 16; TEMP 36.3; O2SAT 97; BMI 23.6
--- OUTSIDE RECORDS SUMMARY | 2024-12-22 12:56 | XMS_ITS | Encounter Summary ---
Author Organization [facility] Address [address] [place] [address] Phone Care Team Providers Care Claims Collector Name Role Phone Patricia Yip MD Primary Care Provider Encounter Details Date Type Department Care Team (Late st Contact Info) Description 03/27/2017 Conversion Encounter [facility] [address] [place] [address] Social History Tobacco Use Types Packs/Day Years [...] on filedocumented in this encounter Care Teams Claims Collector Relationship Specialty Start Date End Date Patricia Yip MD [address] [place] [address] PCP - General 03/21/17 03/11/23 documented as of this encounter
--- OUTSIDE RECORDS SUMMARY | 2024-12-22 12:56 | XMS_ITS | Encounter Summary ---
Author Organization [facility] Address [address] [place] [address] Phone Care Team Providers Care Blood Bank Supervisor Name Role Phone Patricia Yip MD Primary Care Provider Encounter Details Date Type Department Care Team (Late st Contact Info) Description 04/01/2011 Documentation [facility] [place] Family Medicine [address] [place] [address] Family Medicine, Physician [address] [place], [place] [phone] Social History Tobacco Use Types Packs/Day Years [...] on filedocumented in this encounter Care Teams Blood Bank Supervisor Relationship Specialty Start Date End Date Patricia Yip MD [address] [place] [address] PCP - General 03/21/17 03/11/23 documented as of this encounter
--- OUTSIDE RECORDS SUMMARY | 2024-12-22 12:56 | XMS_ITS | Encounter Summary ---
Author Organization [facility] Address [address] [place] [address] Phone Care Team Providers Care Lettuce Cutter Name Role Phone Patricia Yip MD Primary Care Provider Encounter Details Date Type Department Care Team (Late st Contact Info) Description 07/24/2012 Documentation [facility] [place] [address] [place] [address] Family Medicine, Physician [address] [place], [place] [phone] Social History Tobacco Use Types Packs/Day Years [...] on filedocumented in this encounter Care Teams Lettuce Cutter Relationship Specialty Start Date End Date Patricia Yip MD [address] [place] [address] PCP - General 03/21/17 03/11/23 documented as of this encounter
--- OUTSIDE RECORDS SUMMARY | 2024-12-22 12:56 | XMS_ITS | Encounter Summary ---
Author Organization [facility] Address [address] [place] [address] Phone Care Team Providers Care Outgoing Inspector Name Role Phone Patricia Yip MD Primary Care Provider Encounter Details Date Type Department Care Team (Late st Contact Info) Description 08/07/2012 Documentation [facility] Family Medicine [address] [place] [address] Family Medicine, Physician [address] [place], [place] [phone] Social History Tobacco Use Types Packs/Day Years [...] on filedocumented in this encounter Care Teams Outgoing Inspector Relationship Specialty Start Date End Date Patricia Yip MD [address] [place] [address] PCP - General 03/21/17 03/11/23 documented as of this encounter
--- OUTSIDE RECORDS SUMMARY | 2024-12-22 12:56 | XMS_ITS | Encounter Summary ---
Author Organization [facility] Address [address] [place] [address] Phone Care Team Providers Care Fac Engineer Name Role Phone Patricia Yip MD Primary Care Provider [phone] Encounter Details Date Type Department Care Team (Late st Contact Info) Description 07/29/[address] [facility] [place] Family Medicine [address] [place] [address] Family Medicine, Physician [address] [place], [place] [phone] Social History Tobacco Use Types Packs/Day Years [...] on filedocumented in this encounter Care Teams Fac Engineer Relationship Specialty Start Date End Date Patricia Yip MD [address] [place] [address] PCP - General 03/21/17 03/11/23 documented as of this encounter
--- OUTSIDE RECORDS SUMMARY | 2024-12-22 12:56 | XMS_ITS | Encounter Summary ---
Author Organization [facility] Address [address] [place] [address] Phone Care Team Providers Care Safety And Security Officer Name Role Phone Patricia Yip MD Primary Care Provider Encounter Details Date Type Department Care Team (Late st Contact Info) Description 07/29/2012 Documentation [facility] [place] Family Medicine [address] [place] [address] Family Medicine, Physician [address] [place], [place] [phone] Social History Tobacco Use Types Packs/Day Years [...] on filedocumented in this encounter Care Teams Safety And Security Officer Relationship Specialty Start Date End Date Patricia Yip MD [address] [place] [address] PCP - General 03/21/17 03/11/23 documented as of this encounter
--- OUTSIDE RECORDS SUMMARY | 2024-12-22 12:56 | XMS_ITS | Encounter Summary ---
Author Organization [facility] Address [address] [place] [phone] Phone Care Team Providers Care At Home Independent Call Center Agent Name Role Phone Patricia Yip MD Primary Care Provider Encounter Details Date Type Department Care Team (Late st Contact Info) Description 10/19/2012 Documentation [facility] [place] Family Medicine [address] [place] [address] Family Medicine, Physician [address] [place], [place] [phone] Social History Tobacco Use Types Packs/Day Years [...] on filedocumented in this encounter Care Teams At Home Independent Call Center Agent Relationship Specialty Start Date End Date Patricia Yip MD [address] [place] [address] PCP - General 03/21/17 03/11/23 documented as of this encounter
--- OUTSIDE RECORDS SUMMARY | 2024-12-22 12:56 | XMS_ITS | Encounter Summary ---
Author Organization [facility] Address [address] [place] [address] Phone Care Team Providers Care Concrete Bucket Loader Name Role Phone Patricia Yip MD Primary Care Provider Encounter Details Date Type Department Care Team (Late st Contact Info) Description 04/01/2011 Documentation [facility] [place] [address] [place] [address] Family Medicine, Physician [address] [place], [place] [phone] Social History Tobacco Use Types Packs/Day Years [...] on filedocumented in this encounter Care Teams Concrete Bucket Loader Relationship Specialty Start Date End Date Patricia Yip MD [address] [place] [address] PCP - General 03/21/17 03/11/23 documented as of this encounter
--- OUTSIDE RECORDS SUMMARY | 2024-12-22 12:56 | XMS_ITS | Encounter Summary ---
Author Organization [facility] Address [address] [place] [phone] Phone Care Team Providers Care Email Campaign Specialist Name Role Phone Patricia Yip MD Primary Care Provider Encounter Details Date Type Department Care Team (Late st Contact Info) Description 10/19/2012 Documentation [facility] [place] Family Medicine [address] [place] [address] Family Medicine, Physician [address] [place], [place] [phone] Social History Tobacco Use Types Packs/Day Years [...] on filedocumented in this encounter Care Teams Email Campaign Specialist Relationship Specialty Start Date End Date Patricia Yip MD [address] [place] [address] PCP - General 03/21/17 03/11/23 documented as of this encounter
--- OUTSIDE RECORDS SUMMARY | 2024-12-22 12:56 | XMS_ITS | Encounter Summary ---
Author Organization [facility] Address [address] [place] [phone] Phone Care Team Providers Care Group Fitness Instructor Name Role Phone Patricia Yip MD Primary Care Provider Encounter Details Date Type Department Care Team (Late st Contact Info) Description 07/24/2012 Documentation [facility] [place] [address] [place] [address] Family Medicine, Physician [address] [place], [place] [phone] Social History Tobacco Use Types Packs/Day Years [...] on filedocumented in this encounter Care Teams Group Fitness Instructor Relationship Specialty Start Date End Date Patricia Yip MD [address] [place] [address] PCP - General 03/21/17 03/11/23 documented as of this encounter
--- OUTSIDE RECORDS SUMMARY | 2024-12-22 12:56 | XMS_ITS | Encounter Summary ---
Author Organization [facility] Address [address] [place] [address] Phone Care Team Providers Care Block Operator Name Role Phone Patricia Yip MD Primary Care Provider [phone] Encounter Details Date Type Department Care Team (Late st Contact Info) Description 11/26/2012 Documentation [facility] [place] [address] [place] [address] Family Medicine, Physician [address] [place], [place] [phone] Social History Tobacco Use Types Packs/Day Years [...] on filedocumented in this encounter Care Teams Block Operator Relationship Specialty Start Date End Date Patricia Yip MD [address] [place] [address] PCP - General 03/21/17 03/11/23 documented as of this encounter
--- OUTSIDE RECORDS SUMMARY | 2024-12-22 12:56 | XMS_ITS | Encounter Summary ---
Author Organization [facility] Address [address] [place] [phone] Phone Care Team Providers Care Chamber Worker Name Role Phone Patricia Yip MD Primary Care Provider Encounter Details Date Type Department Care Team (Late st Contact Info) Description 04/01/2011 Documentation [facility] [place] Family Medicine [address] [place] [address] Family Medicine, Physician [address] [place], [place] [phone] Social History Tobacco Use Types Packs/Day Years [...] on filedocumented in this encounter Care Teams Chamber Worker Relationship Specialty Start Date End Date Patricia Yip MD [address] [place] [address] PCP - General 03/21/17 03/11/23 documented as of this encounter
--- OUTSIDE RECORDS SUMMARY | 2024-12-22 12:56 | XMS_ITS | Encounter Summary ---
Author Organization [facility] Address [address] [place] [phone] Phone Care Team Providers Care Imcu Nurse Name Role Phone Patricia Yip MD Primary Care Provider Encounter Details Date Type Department Care Team (Late st Contact Info) Description 04/01/2011 Documentation [facility] [place] [address] [place] [address] Family Medicine, Physician [address] [place], [place] [phone] Social History Tobacco Use Types Packs/Day Years [...] on filedocumented in this encounter Care Teams Imcu Nurse Relationship Specialty Start Date End Date Patricia Yip MD [address] [place] [address] PCP - General 03/21/17 03/11/23 documented as of this encounter
--- OUTSIDE RECORDS SUMMARY | 2024-12-22 12:56 | XMS_ITS | Clinical Summary ---
Author Organization [facility] Address [address] [place] [address] Phone Care Team Providers Care Integration Specialist Name Role Phone Unavailable Primary Care Provider [...]
== END 2024-12-22 13:27 | disposition home or self-care (01) ==
LOC: HO.HMCC 12:29
PROVIDERS: PCP Internal Medicine; Visit Provider Internal Medicine
DX: Z00.01 Encounter for general adult medical examination with abnormal findings (principal); N92.0 Excessive and frequent menstruation with regular cycle; D50.9 Iron deficiency anemia, unspecified; H61.21 Impacted cerumen, right ear

== ENCOUNTER → 2024-12-22 12:28 | Outpatient (BNVA) | payer BC, SELFPAY | PROVIDERS: PCP Internal Medicine; Visit Provider Internal Medicine | DX: Z00.01 Encounter for general adult medical examination with abnormal findings (principal); N92.0 Excessive and frequent menstruation with regular cycle; D50.9 Iron deficiency anemia, unspecified; H61.21 Impacted cerumen, right ear | CPT/HCPCS: 69210; 96127 ==